=== PATIENT | male | born 1980 | race Two or more races ===

== ENCOUNTER 2022-01-29 13:22 | Outpatient (REF) | payer OTHER, SELFPAY ==
[2022-01-29 14:25] LABS: Influenza A PCR NEGATIVE (Negative); Influenza B PCR NEGATIVE (Negative); Resp Syncy Virus RNA Qual PCR NEGATIVE (Negative); SARS COV2 PCR INHOUSE POSITIVE (Negative)
== END 2022-01-29 13:23 | disposition home or self-care (01) ==
LOC: HO.LNP 13:22
PROVIDERS: Visit Provider Nurse Practitioner Family
DX: Z20.822 Contact with and (suspected) exposure to COVID-19 (principal); R09.89 Other specified symptoms and signs involving the circulatory and respiratory systems; R50.9 Fever, unspecified; R52 Pain, unspecified
CPT/HCPCS: 0241U

== ENCOUNTER 2022-04-09 16:49 | Outpatient (REF) | payer OTHER, SELFPAY ==
--- NOTE | ~2022-04-09 | XR_ITS ---
EXAMINATION: X-RAY CERVICAL SPINE X-RAY X-RAY THORACIC SPINE CLINICAL INFORMATION: Pain. COMPARISON: CT cervical spine 11/02/2014. Radiograph of the thoracic spine dated from 11/02/2014. TECHNIQUE: 4 views of the cervical spine. 2 views of the thoracic spine. FINDINGS: Cervical spine: Grade 1 anterolisthesis of C4 on C5 with reversal of the cervical lordosis. Otherwise, anatomic alignment. The atlantooccipital and atlantoaxial articulations are maintained. No acute compression deformities. Variously degrees of multilevel cervical spondylosis with disc space narrowing, marginal osteophytes and uncovertebral hypertrophy, more noticeable in the mid and lower lumbar spine. No prevertebral soft tissue thickening. The lung apices are clear. Thoracic spine: No acute compression deformity or subluxation. Disc spaces and posterior elements are intact. No significant soft tissue abnormality. XR/XR thoracic spine 2V IMPRESSION: 1. Mild reversal of the cervical lordosis with grade 1 anterolisthesis of C4 on C5, not convincingly changed when compared CT from 2014. 2. No acute compression deformity or subluxation. 3. Moderate multilevel cervical spondylosis, more noticeable in the mid and lower cervical spine. If clinically deemed appropriate, correlation with an MR of the cervical spine could be obtained for assessment of degree of nerve root impingement and central canal narrowing. 4. No evidence of acute compression deformity of malalignment in the thoracic spine.
--- NOTE | ~2022-04-09 | XR_ITS ---
EXAMINATION: X-RAY CERVICAL SPINE X-RAY X-RAY THORACIC SPINE CLINICAL INFORMATION: Pain. COMPARISON: CT cervical spine 11/02/2014. Radiograph of the thoracic spine dated from 11/02/2014. TECHNIQUE: 4 views of the cervical spine. 2 views of the thoracic spine. FINDINGS: Cervical spine: Grade 1 anterolisthesis of C4 on C5 with reversal of the cervical lordosis. Otherwise, anatomic alignment. The atlantooccipital and atlantoaxial articulations are maintained. No acute compression deformities. Variously degrees of multilevel cervical spondylosis with disc space narrowing, marginal osteophytes and uncovertebral hypertrophy, more noticeable in the mid and lower lumbar spine. No prevertebral soft tissue thickening. The lung apices are clear. Thoracic spine: No acute compression deformity or subluxation. Disc spaces and posterior elements are intact. No significant soft tissue abnormality. XR/XR cervical spine 2V IMPRESSION: 1. Mild reversal of the cervical lordosis with grade 1 anterolisthesis of C4 on C5, not convincingly changed when compared CT from 2014. 2. No acute compression deformity or subluxation. 3. Moderate multilevel cervical spondylosis, more noticeable in the mid and lower cervical spine. If clinically deemed appropriate, correlation with an MR of the cervical spine could be obtained for assessment of degree of nerve root impingement and central canal narrowing. 4. No evidence of acute compression deformity of malalignment in the thoracic spine.
== END 2022-04-09 16:50 | disposition home or self-care (01) ==
LOC: HO.XRAY 16:49
PROVIDERS: Visit Provider Family Medicine
DX: M54.9 Dorsalgia, unspecified (principal); Z91.81 History of falling
CPT/HCPCS: 72040; 72070

== ENCOUNTER 2023-02-28 09:02 | Outpatient (AMB) | payer OTHER, SELFPAY ==
[2023-02-28 09:08] VITALS: BP 128/74; PULSE 60; O2SAT 98; BMI 29.7
--- NOTE | 2023-02-28 09:08 | MHC.PC.OV ---
Vital Signs 02/28/23 09:08 Height 5 ft 5 in Weight 178 lb 4 oz BMI 29.7 BP 128/74 Blood Pressure Location Lt brachial Position Sitting Pulse 60 Pulse Source Pulse Oximeter Pulse Oximetry (%) 98 Intake Visit Reasons: PE Intake Note: Patient is here for physical and is concerned of right eye soreness. Patient is concerned about being pre diabetes. Allergies No Known Allergies [No Known Allergies*] Allergy (Verified 02/28/23 09:15) Tobacco use date assessed: 02/28/23 Dental Screening Dental Screen Date: 02/28/23 Did you have a dental visit in the last 12 months?: Yes Did you have a dental problem in the last 6 months where you did not have access to dental care?: No Was dental information given to patient?: Patient has dentist HPI PE HPI Details 42 y/o male presents for a CPE with f/u labs and health maintenance. No recent labs to review. Pt has complaints of R eye soreness/redness x1 month. He reports vision is fine. Pt reports GERD daily. He reports he has improved his diet but has not been exercising much. Pt reports ongoing back pain after a fall about a year ago. HPI Comments History of Present Illness Details Documentation assistance for Eldon Todd MD, was provided by Art Maldonado,? Pole Lift Operator on 02/28/2023 9:25 AM LAURE. I, Dr. Todd, have read, observed, and verified documentation.? PFSH Surgical History (Updated 02/28/23 @ 09:20 by Phyllis Dong CMA) Hx of appendectomy Family History (Updated 02/28/23 @ 09:22 by Phyllis Dong CMA) Mother Diabetes Father Hx of heart surgery Diabetes Other Substance abuse Social History (Updated 02/28/23 @ 09:25 by Phyllis Dong CMA) Household Members: Family Housing: House Are you a primary critical care clinical nurse specialist to a significant other at home: No Do you presently have visiting nurse or other home services: No 75 years or older and lives alone: No Alcohol intake: never Patient Tobacco Use Status: Never used Tobacco e-Cigarette/Vaping Use: Never Used Substance Use Type: Opiates service: No Current occupational status: employed 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 1. Little interest or pleasure in doing things: not at all 2. Feeling down, depressed, or hopeless: not at all 3. Trouble falling or staying asleep, or sleeping too much: not at all 4. Feeling tired or having little energy: not at all 5. Poor appetite or overeating: not at all 6. Feeling bad about yourself - or that you are a failure or have let yourself or your family down: not at all 7. Trouble concentrating on things, such as reading the newspaper or watching television: not at all 8. Moving or speaking so slowly that other people could have noticed. Or the opposite - being so fidgety or restless that you have been moving around a lot more than usual: not at all 9. Thoughts that you would be better off or of hurting yourself in some way: not at all Total score: 0 Source: Developed by Drs. Armen Rivera, Roxann Phoenix, Ernesto Moser and colleagues, with an educational deann from [employer]. Thrive Questionnaire I am a: Patient What is your living situation today?: I have a steady place to live Within the past 12 months, did the food you bought not last and you didn't have the money to get more?: Never true Within the past 12 months, did you worry whether your food would run out before you got money to buy more?: Never true Do you have trouble paying for medicines?: No Do you have trouble getting transportation to medical appointments?: No Do you have trouble paying your heating and electricity bill?: No Do you have trouble taking care of your child, family member or friend?: No Do you have trouble with day-to-day activities such as bathing, preparing meals, shopping, managing finances, etc.?: No Are you currently unemployed and looking for a job?: No Are you interested in more education?: No AUDIT C Alcohol Use Questionnaire (AUDIT-C) 1. How often do you have a drink containing alcohol?: Never 3. How often do you have six or more drinks on one occasion?: Never Total Score: 0 PRABHA-7 AMB Questionnaire PRABHA-7 Date PRABHA - 7 assessed: 02/28/23 Feeling nervous, anxious, or on edge: 2 = More than half the days Not being able to stop or control worryin = Several days Worrying too much about different things: 1 = Several days Trouble relaxin = Nearly every day Being so restless that it is hard to sit still: 2 = More than half the days Becoming easily annoyed or irritable: 0 = Not at all Feeling afraid as if something awful might happen: 0 = Not at all Total PRABHA-7 score (0-4 normal; 5-9 mild; 10-14 moderate; 15-21 severe): 9 Source: Developed by Drs. Armen Rivera, Roxann Phoenix, Ernesto Moser and colleagues, with an educational deann from [employer]. Review of Systems Const Denies chills, Denies fatigue, Denies fever(s), Denies headache(s) and Denies weakness Eyes Denies change in vision ENT Denies dizziness, Denies headache(s), Denies hearing loss, Denies nasal congestion, Denies sinus pain, Denies sinus pressure and Denies sore throat Card Denies chest pain, Denies lightheadedness, Denies dyspnea and Denies other (palpitations) Resp Denies cough, Denies dyspnea and Denies wheezing GI Denies abdominal pain, Denies melena, Denies hematochezia, Denies change in bowel habits, Denies dyspepsia and Denies nausea Denies hematuria and Denies dysuria Musc Denies abnormal gait, Denies myalgias, Denies arthralgias, Denies numbness and Denies tingling Skin/Breast Denies rash, Denies unusual bruising and Denies wounds Neuro Denies abnormal gait, Denies dizziness, Denies headache(s), Denies memory loss, Denies numbness, Denies Sensory deficit (Neuro), Denies tingling and Denies weakness Psych Denies anxiety, Denies depression and Denies memory loss Endo Denies cold intolerance, Denies fatigue, Denies heat intolerance, Denies polydipsia and Denies polyuria Cj/Lymph Denies easy bleeding and Denies easy bruising Aller/Immun Denies wheezing Physical exam (Primary Care) Vital Signs: Last Vital Signs Pulse 60 02/28/23 09:08 BP 128/74 08/31/23 09:08 Pulse Ox 98 02/28/23 09:08 BMI result Body Mass Index 29.7 Tobacco/Smoking Status: Tobacco use Status Tobacco use date assessed 02/28/23 02/28/23 09:25 Patient Tobacco Use Status Never used Tobacco 02/28/23 09:25 e-Cigarette/Vaping Use Never Used 02/28/23 09:25 PHQ-9: PHQ-9 Score PHQ-9: Total score 0 02/28/23 09:32 Const General: no acute distress, well developed, alert and awake Nutritional Appearance: well nourished Orientation/consciousness: patient oriented x3 HENMT Head: Yes normocephalic and Yes atraumatic Ears: hearing grossly normal bilaterally and TM's normal bilaterally General nose exam: Normal external nose present and Normal nares present Mouth: Normal oral and palatal mucosa present and moist mucous membranes Teeth and gingiva: dentition normal Throat: Yes posterior oropharynx normal Eyes Pupils: Equal, round and reactive pupils present and Pupil accommodation reflex normal EOM: EOMs intact bilaterally Neck Neck: Yes normal visual inspection, Yes no lymphadenopathy and Yes trachea midline Thyroid: Thyroid normal Carotids: no bruits Lymphatic: no lymphadenopathy noted Chest Chest palpation & inspection: normal inspection of the chest Resp Effort & Inspection: normal respiratory effort Auscultation: clear to auscultation bilaterally Cardio Rate: regular rate Rhythm: regular rhythm Heart sounds: S1 normal heart sound present, S2 normal heart sound present, no gallops, no murmurs and no rubs Bruits: no abdominal aortic bruits and no carotid bruits GI Palpation (GI): No Abdominal aortic bruit present, Soft to palpation, nontender, No hepatosplenomegaly present and No Rebound tenderness present Auscultation: normal bowel sounds General: Yes no CVA tenderness Back/Spine/Pelvis Back: no CVA tenderness Cervical Spine: cervical ROM normal and No Cervical spine tenderness Thoracic/Lumbar Spine: thoraco-lumbar ROM normal, No pain with thoraco-lumbar ROM, No thoracic spinal tenderness and No lumbar spinal tenderness Skin Lesions: no lesions Rashes: no rashes Trauma: no lacerations or abrasions Wounds: no wounds Nails: normal Neuro General: patient oriented x3 Cranial nerves: Yes Equal, round and reactive pupils present Cognition (Neuro): normal cognition Gait exam (Neuro): Normal gait present Motor exam (neuro): 5/5 motor strength present throughout Sensory Exam: No Sensory deficit (Neuro) Deep tendon reflexes (DTR's): Right patellar reflex intensity grade: 2+ and Left patellar reflex intensity grade: 2+ Extrem General: Yes normal to inspection and No edema Psych Appearance: grossly normal Affect: normal affect Attitude: cooperative Thought process: Normal thought process present Assessment and Plan Assessment & Plan (1) Adult general medical exam: Code(s): Z00.00 - Encounter for general adult medical examination without abnormal findings (2) Infection of right eye: Code(s): H44.001 - Unspecified purulent endophthalmitis, right eye Plan: Conjunctivitis with periorbital cellulitis Start cephalexin Warm compresses He can continue the eyedrops he was given If any globe pain or vision changes, he will get an urgent visit with an eye doctor or go to the ED (3) GERD (gastroesophageal reflux disease): Code(s): K21.9 - Gastro-esophageal reflux disease without esophagitis Plan: Moderately severe daily GERD symptoms and patient describes a history of esophageal strictures No current chain maker machine-referred to GI Start omeprazole Avoid triggers (4) Back pain: Code(s): M54.9 - Dorsalgia, unspecified Plan: Chronic Back pain and cervicalgia Likely recurrent muscular strains Referred for physical therapy (5) Cervicalgia: Code(s): M54.2 - Cervicalgia Orders: Orders Comprehensive Nicasio. Panel Fast Today Z00.00 - Encounter for general adult medical examination without abnormal findings Lipid Panel Today Z00.00 - Encounter for general adult medical examination without abnormal findings Prostate Specific Antigen Scr Today Z12.5 - Encounter for screening for malignant neoplasm of prostate TSH reflex Free T4 Today Z00.00 - Encounter for general adult medical examination without abnormal findings Microalbumin, Random (w Creat) Today I10 - Essential (primary) hypertension UA and rflx microscopic Today Z00.00 - Encounter for general adult medical examination without abnormal findings PT Evaluation and Treatment Today M54.2 - Cervicalgia, M54.9 - Dorsalgia, unspecified Referrals Gastroenterology Referral K21.9 - Gastro-esophageal reflux disease without esophagitis Medications: New cephalexin 500 mg PO Q12H 20 caps 0RF 10 days omeprazole 40 mg PO DAILY 30 caps 3RF 30 days Coding Level of Care Code Est Pt Level 3 (25766) Est Pt Prev Care 40-64y(28345) Diagnoses Adult general medical exam Z00.00 Infection of right eye H44.001 GERD (gastroesophageal reflux disease) K21.9 Back pain M54.9 Cervicalgia M54.2
== END 2023-02-28 10:07 | disposition home or self-care (01) ==
PROVIDERS: Visit Provider Family Medicine
DX: Z00.00 Encounter for general adult medical examination without abnormal findings (principal); H44.001 Unspecified purulent endophthalmitis, right eye; K21.9 Gastro-esophageal reflux disease without esophagitis; M54.9 Dorsalgia, unspecified; M54.2 Cervicalgia
CPT/HCPCS: 99396

== ENCOUNTER 2023-05-06 10:43 | Outpatient (AMB) | payer OTHER, SELFPAY ==
[2023-05-06 13:12] VITALS: BP 128/76; PULSE 72; TEMP 36.6; O2SAT 99; BMI 30.8
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
== END 2023-05-06 14:05 | disposition home or self-care (01) ==
PROVIDERS: Visit Provider Internal Medicine
DX: M54.2 Cervicalgia (principal)
CPT/HCPCS: 99213

== ENCOUNTER 2025-01-08 08:09 | Outpatient (REF) | payer OTHER, SELFPAY | END 2025-01-08 08:10 | disposition home or self-care (01) | LOC: HO.LNP 08:09 | PROVIDERS: Visit Provider Physician Assistant | DX: N39.0 Urinary tract infection, site not specified (principal); Z13.9 Encounter for screening, unspecified | CPT/HCPCS: 81003; 87086 ==

== ENCOUNTER 2025-01-08 08:09 | Outpatient (AMB) | payer OTHER, SELFPAY ==
--- OUTSIDE RECORDS SUMMARY | 2025-01-08 08:12 | XMS_ITS | Clinical Summary ---
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 Name Role Phone Unavailable Primary Care Provider Unavailabl e Social History Tobacco Use Types Packs/Day Years Used Date Smoking Tobacco: Never Assessed Sex and Gender Information Value Date Recorded Sex Assigned at Not on file Legal Sex Male 6:47 PM EDT Gender Identity Not on file Sexual Orientation Not on file Plan of Treatment Health Maintenance Due Date Last Done Comments Hepatitis C Virus Screening 1982 HIV Screening 09/24/1995 DTaP/Tdap/Td Vaccines (1 - Tdap) 2001 Hepatitis B Vaccines (1 of 3 - 19+ 3-dose series) 2001 COVID-19 Vaccine (2023-2 5 season) 2024 HPV Vaccines Aged Out No longer eligi ble based on patient's age to complete this topic Pneumococcal Vaccine: Pediat lauryn (0-5 Years) and At-Risk Patients (6 to 49 Years) Aged Out No longer eligible b ased on patient's age to complete this topic
[2025-01-08 08:14] VITALS: BP 106/68; PULSE 60; TEMP 36.5; O2SAT 97; BMI 31.6
--- NOTE | 2025-01-08 08:14 | AM.OFFWIN_ITS ---
Intake Vital Signs 01/08/25 08:14 Height 5 ft 5 in Weight 190 lb BMI 31.6 BP 106/68 Blood Pressure Location Lt brachial Position Sitting Pulse 60 Pulse Source Pulse Oximeter Temp 97.7 F Pulse Oximetry (%) 97 Oxygen Delivery Method Room Air Intake Visit Reasons: EP ?UTI Intake Note: presents with pain to right lower abodomen around to right flank, urge to void, h/o kidney stones, OTC AZO was helpful Patient Tobacco Use Status: Never used Tobacco Allergies No Known Allergies (No Known Allergies*) Allergy (Verified 01/08/25 08:19) Do you need a note to return to daycare/school/sports/work: Yes HPI HPI Comments History of Present Illness Details History - The patient is a 44-year-old male pres enting with a urinary tract infection symptoms for one day. - The patient experienced pain and disco mfort starting the previous day, which intensified at 2 AM, prompting him to take a bath for relief. - The pain was localized to the right lo wer abdomen and lower right back, with no associated fever, nausea or vomiting. - The patient took Azo, which provided s ignificant relief within 20 minutes. - There was no blood in the urine, but t he urine appeared discolored due to Azo. - The patient did not experience increas ed frequency of urination or burning sensation during urination. Physical Exam General: Cooperative, healthy appearing, comfortable, no acute distress and well developed Orientation: Patient oriented x3 Limitations: No limitations Head: Normal to inspection Ears: Hearing grossly normal bilaterally Face and sinus: Normal facial exam Neck: Normal visual inspection and Yes full ROM Respiratory: Normal respiratory effort and able to speak in complete sentences. Skin: No rashes or lesions noted Neuro: Patient oriented x3 [facility] Surgical History (Updated 02/28/23 @ 09:20 by Phyllis Dong CMA) Hx of appendectomy Family History (Updated 02/28/23 @ 09:22 by Phyllis Dong CMA) Mother Diabetes Father Hx of heart surgery Diabetes Other Substance abuse Social History (Updated 02/28/23 @ 09:25 by Phyllis Dong CMA) Household Members: Family Housing: House Are you a primary md do resident urgent care to a significant other at home: No Do you presently have visiting nurse or other home services: No 75 years or older and lives alone: No Alcohol intake: never Patient Tobacco Use Status: Never used Tobacco e-Cigarette/Vaping Use: Never Used Substance Use Type: Opiates service: No Current occupational status: employed 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 Cognitive needs: No Hearing needs: No Vision needs: No Review of Systems Const All systems reviewed & are unremarkable except as noted in HPI and below Physical Exam Vital Signs: Last Vital Signs Temp 97.7 F 01/08/25 08:14 Pulse 60 01/08/25 08:14 BP 106/68 01/08/25 08:14 Pulse Ox 97 01/08/25 08:14 Oxygen Delivery Method Room Air 01/08/25 08:14 BMI result Body Mass Index 31.6 Assessment & Plan Assessment & Plan (1) UTI (urinary tract infection): Code(s): N39.0 - Urinary tract infection, site not specified Qualifiers: Urinary tract infection type: acute cystitis Hematuria presence: with hematuria Qualified Code(s): N30.01 - Acute cystitis with hematuria Plan: Plan Patient was informed and verbally consented to the use of an ambient scribe for clinic note documentation during this visit. 1. Urinary Tract Infection (Uti) - A urine culture was sent for analysis to confirm the infection. - The patient was prescribed cefuroxime, to be taken twice daily for five days. - The patient was advised to seek emergency care if symptoms such as fever, inability to urinate, or blood in urine develop. Orders: Orders Urine Culture Today N39.0 - Urinary tract infection, site not specified Medications: New cefuroxime axetil 500 mg PO Q12H 10 tabs 0RF Coding Level of Care Code New Pt Level 3 (80612) Diagnoses Acute cystitis with hematuria N30.01 Urinary tract infection type: acute cystitis Hematuria presence: with hematuria
== END 2025-01-08 08:55 | disposition home or self-care (01) ==
PROVIDERS: Visit Provider Physician Assistant
DX: N30.01 Acute cystitis with hematuria (principal); Z13.9 Encounter for screening, unspecified

== ENCOUNTER 2025-01-19 09:30 | Outpatient (AMB) | payer OTHER, SELFPAY ==
--- NOTE | 2025-01-19 09:35 | A.OFFPC_ITS ---
Vital Signs 01/19/25 09:37 Height 5 ft 5 in Weight 189 lb 6 oz BMI 31.5 BP 132/84 Blood Pressure Location Lt brachial Position Sitting Respiration 12 Pulse 64 Pulse Source Pulse Oximeter Temp 98.5 F Temp Source Oral Pulse Oximetry (%) 96 Oxygen Delivery Method Room Air Intake Visit Reasons: CPE Intake Note: Physical. Had pain last week from possible kidney stone, sxs resolved on Saturday. Obstetric Assistant Required: No Allergies No Known Allergies (No Known Allergies*) Allergy (Verified 01/19/25 09:48) Medication List - Last Reconciled 01/19/25 by Phani Asif, FAMILY SERVICE CASEWORKER lebrikizumab-lbkz (Ebglyss Pen) 250 mg subcut Q2W Tobacco use date assessed: 01/19/25 Dental Screening Dental Screen Date: 01/19/25 Did you have a dental visit in the last 12 months?: No Did you have a dental problem in the last 6 months where you did not have access to dental care?: No Was dental information given to patient?: Patient declined HPI HPI Comments History of Present Illness Details 44-year-old male presents for an extende d physical exam. He is a patient of Dr. Todd. Acute issue(s) - None Past Medical History - Back pain, cervicalgia, GERD, renal ca lculi, psoriasis, eczema Social History - Nonsmoker. Does not vape. Does not dri nk alcohol. Denies recreational drug use - Has been making unhealthy dietary blandon sera. Active but does not exercise. Generally sleep well Health maintenance - Last eye exam was 1 year ago. Referred to ophthalmology for routine eye exam - Last dental visit was a years ago; enc ouraged to schedule an appointment with his dentist for routine dental care. - Last tetanus vaccine unknown; declines vaccinated - Has not been vaccinated for the flu ; declines vaccination Specialists Followed by [facility] for eczema and psoriasis PFSH Surgical History (Updated 02/28/23 @ 09:20 by Phyllis Dong CMA) Hx of appendectomy Family History (Updated 02/28/23 @ 09:22 by Phyllis Dong CMA) Mother Diabetes Father Hx of heart surgery Diabetes Other Substance abuse Social History (Updated 02/28/23 @ 09:25 by Phyllis Dong CMA) Household Members: Family Housing: House Are you a primary rn long term care to a significant other at home: No Do you presently have visiting nurse or other home services: No 75 years or older and lives alone: No Alcohol intake: never Patient Tobacco Use Status: Never used Tobacco e-Cigarette/Vaping Use: Never Used Substance Use Type: Opiates service: No Current occupational status: employed 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 1. Little interest or pleasure in doing things: not at all 2. Feeling down, depressed, or hopeless: not at all 3. Trouble falling or staying asleep, or sleeping too much: not at all 4. Feeling tired or having little energy: not at all 5. Poor appetite or overeating: not at all 6. Feeling bad about yourself - or that you are a failure or have let yourself or your family down: not at all 7. Trouble concentrating on things, such as reading the newspaper or watching television: not at all 8. Moving or speaking so slowly that other people could have noticed. Or the opposite - being so fidgety or restless that you have been moving around a lot more than usual: not at all 9. Thoughts that you would be better off or of hurting yourself in some way: not at all Total score: 0 Depression Screening Interpretation: Negative Depression Screening Done: Yes 57825 - PHQ-9 Billing: Yes Source: Developed by Drs. Armen Rivera, Roxann Phoenix, Ernesto Moser and colleagues, with an educational deann from [employer]. Thrive Questionnaire Date Thrive assessed: 01/19/25 I am a: Patient What is your living situation today?: I have a steady place to live Within the past 12 months, did the food you bought not last and you didn't have the money to get more?: I choose not to answer this question Within the past 12 months, did you worry whether your food would run out before you got money to buy more?: I choose not to answer this question Do you have trouble paying for medicines?: No Do you have trouble getting transportation to medical appointments?: No Do you have trouble paying your heating and electricity bill?: No Do you have trouble taking care of your child, family member or friend?: No Do you have trouble with day-to-day activities such as bathing, preparing meals, shopping, managing finances, etc.?: No Are you currently unemployed and looking for a job?: No Are you interested in more education?: No Please select the resources that you would like help with: None Currently or been in a relationship where the following occur: No concerns reported THRIVE Score: 0 AUDIT C Alcohol Use Questionnaire (AUDIT-C) 1. How often do you have a drink containing alcohol?: Never 3. How often do you have six or more drinks on one occasion?: Never Total Score: 0 Score Reviewed/Action Taken: Yes PRABHA-7 AMB Questionnaire PRABHA-7 Date PRABHA - 7 assessed: 01/19/25 Feeling nervous, anxious, or on edge: 0 = Not at all Not being able to stop or control worryin = Not at all Worrying too much about different things: 1 = Several days Trouble relaxin = More than half the days Being so restless that it is hard to sit still: 0 = Not at all Becoming easily annoyed or irritable: 1 = Several days Feeling afraid as if something awful might happen: 0 = Not at all Total PRBAHA-7 score (0-4 normal; 5-9 mild; 10-14 moderate; 15-21 severe): 4 Source: Developed by Drs. Armen Rivera, Roxann Phoenix, Ernesto Moser and colleagues, with an educational deann from [employer]. PRABHA-7 Assessment Billing PRABHA-7 Assessment Tool: PRABHA-7 Assessment 02897 Review of Systems Const Details: Denies chills, Denies fatigue, Denies fever(s), Denies headache(s) and Denies weakness HEENT Denies change in vision, Denies dizziness, Denies headache(s), Denies hearing loss, Denies nasal congestion, Denies sinus pain, Denies sinus pressure and Denies sore throat Card Denies chest pain, Denies lightheadedness, Denies dyspnea and Denies other (palpitations) Resp Denies cough, Denies dyspnea and Denies wheezing GI Denies abdominal pain, Denies melena, Denies hematochezia, Denies change in bowel habits, Denies dyspepsia and Denies nausea Denies hematuria and Denies dysuria Musc Denies abnormal gait, Denies myalgias, Denies arthralgias, Denies numbness and Denies tingling Skin/Breast Denies rash, Denies unusual bruising and Denies wounds Neuro Denies abnormal gait, Denies dizziness, Denies headache(s), Denies memory loss, Denies numbness, Denies Sensory deficit (Neuro), Denies tingling and Denies weakness Psych Denies anxiety, Denies depression and Denies memory loss Endo Denies cold intolerance, Denies fatigue, Denies heat intolerance, Denies polydipsia and Denies polyuria Cj/Lymph Denies easy bleeding and Denies easy bruising Aller/Immun Denies wheezing Physical exam (Primary Care) Tobacco/Smoking Status: Tobacco use Status Tobacco use date assessed 02/28/23 05/06/23 10:38 Patient Tobacco Use Status Never used Tobacco 01/08/25 08:21 e-Cigarette/Vaping Use Never Used 05/06/23 10:38 Depression Screening Interpretation: Negative Currently or been in a relationship where the following occur: No concerns reported Const Other: General: no acute distress, well developed, alert and awake Nutritional Appearance: well nourished Orientation/consciousness: patient oriented x3 HENMT Head: Yes normocephalic and Yes atraumatic Ears: hearing grossly normal bilaterally and TM's normal bilaterally General nose exam: Normal external nose present and Normal nares present Mouth: Normal oral and palatal mucosa present and moist mucous membranes Teeth and gingiva: dentition normal Throat: Yes oropharynx normal Eyes Pupils: Equal, round and reactive pupils present and Pupil accommodation reflex normal EOM: EOMs intact bilaterally Neck Neck: Yes normal visual inspection, Yes no lymphadenopathy and Yes trachea midline Thyroid: Thyroid normal Carotids: no bruits Lymphatic: no lymphadenopathy noted Chest Chest palpation & inspection: normal inspection of the chest Resp Effort & Inspection: normal respiratory effort Auscultation: clear to auscultation bilaterally Cardio Rate: regular rate Rhythm: regular rhythm Heart sounds: S1 normal heart sound present, S2 normal heart sound present, no gallops, no murmurs and no rubs Bruits: no abdominal aortic bruits and no carotid bruits GI Palpation (GI): No Abdominal aortic bruit present, Soft to palpation, nontender, No hepatosplenomegaly present and No Rebound tenderness present Auscultation: normal bowel sounds General: Yes no CVA tenderness Back/Spine/Pelvis Back: no CVA tenderness Cervical Spine: cervical ROM normal and No Cervical spine tenderness Thoracic/Lumbar Spine: thoraco-lumbar ROM normal, No pain with thoraco-lumbar ROM, No thoracic spinal tenderness and No lumbar spinal tenderness Skin General: warm and dry. Normal skin color. Normal skin turgor Lesions: no lesions Rashes: no rashes Trauma: no lacerations or abrasions Wounds: no wounds Nails: normal Neuro General: patient oriented x3, gait normal and CN's II-XI intact bilaterally Cranial nerves: Yes Equal, round and reactive pupils present Cognition (Neuro): normal cognition Gait exam (Neuro): Normal gait present Motor exam (neuro): 5/5 motor strength present throughout Sensory Exam: No Sensory deficit (Neuro) Deep tendon reflexes (DTR's): Right patellar reflex intensity grade: 2+ and Left patellar reflex intensity grade: 2+ Extrem General: Yes normal to inspection, No edema and No calf tenderness Psych Appearance: grossly normal Affect: normal affect Attitude: cooperative Thought process: Normal thought process present Coding Level of Care Code Est Pt Level 3 (40625) Est Pt Prev Care 40-64y(15379) Diagnoses Adult general medical exam Z00.00 Eye exam, routine Z01.00 Obesity (BMI 30-39.9) E66.9 Eczema L30.9 Psoriasis L40.9 Laboratory tests ordered as part of a complete physical exam (CPE) Z00.00 Additional Codes PRABHA-7 Assessment Billing - PRABHA-7 Assessment Tool: PRABHA-7 Assessment 31810 ([id number]) PHQ-9 - 34536 - PHQ-9 Billing: Yes ([id number]) Assessment & Plan Assessment & Plan (1) Adult general medical exam: Code(s): Z00.00 - Encounter for general adult medical examination without abnormal findings Category: Medical Plan: Normal physical exam of a 44-year-old male. No significant functional limitation noted. Continue current treatment regimen. Healthy diet and routine exercise encouraged. Perform lab work and follow-up for telehealth visit with PCP in 2-4 weeks for labs review. Return sooner with symptoms or concerns. Verbalized understanding and agreed with the plan. (2) Eye exam, routine: Code(s): Z01.00 - Encounter for examination of eyes and vision without abnormal findings Category: Medical Plan: Last eye exam was 1 year ago. Referred to ophthalmology for routine eye exam. (3) Obesity (BMI 30-39.9): Code(s): E66.9 - Obesity, unspecified Category: Medical Plan: He currently weighs 189 lb, BMI is 31.5. He has been making healthy dietary choices. He is active but does not exercise. Healthy diet and routine exercise encouraged. Follow-up as needed. Verbalized understanding and agreed with the plan. (4) Eczema: Code(s): L30.9 - Dermatitis, unspecified Category: Medical Plan: No acute signs or symptoms. Continued with [place] Ebglyss as prescribed. Follow-up with allergies/tooth polisher as planned. Verbalized understanding and agreed with the treatment plan. (5) Psoriasis: Code(s): L40.9 - Psoriasis, unspecified Category: Medical Plan: Plan as above. (6) Laboratory tests ordered as part of a complete physical exam (CPE): Code(s): Z00.00 - Encounter for general adult medical examination without abnormal fin dings Category: Medical Plan: Fasting labs ordered as part of a complete physical exam. Advised to fast for at least 10 hours before getting labs drawn. May drink water Verbalized understanding and agreed with treatment plan. Orders: Orders Complete Blood Count Auto Diff Today Z00.00 - Encounter for general adult medical examination without abnormal findings Comprehensive [place]. Panel Fast Today Z00.00 - Encounter for general adult medical examination without abnormal findings TSH reflex Free T4 Today Z00.00 - Encounter for general adult medical examination without abnormal findings Lipid Panel Today Z00.00 - Encounter for general adult medical examination without abnormal findings Microalbumin, Random (w Creat) Today Z00.00 - Encounter for general adult medical examination without abnormal findings PSA, Ultra Sensitive Today Z00.00 - Encounter for general adult medical examination without abnormal findings UA CC w/rflx Micro + Cult Today Z00.00 - Encounter for general adult medical examination without abnormal findings Vitamin D 25-OH Total Today Z00.00 - Encounter for general adult medical examination without abnormal findings Referrals Ophthalmology Referral Z01.00 - Encounter for examination of eyes and vision without abnormal findings
[2025-01-19 09:37] VITALS: BP 132/84; PULSE 64; RESP 12; TEMP 36.9; O2SAT 96; BMI 31.5
--- OUTSIDE RECORDS SUMMARY | 2025-01-19 10:08 | XMS_ITS | Clinical Summary ---
Author Organization [facility] Address [address] [place] [address] Care Team Providers Care Railway Shunter Name Role Phone Unavailable Primary Care Provider [...]
== END 2025-01-19 10:01 | disposition home or self-care (01) ==
LOC: HO.HMCFM 09:31
PROVIDERS: PCP Nurse Practitioner Family; Visit Provider Nurse Practitioner Family
DX: Z00.00 Encounter for general adult medical examination without abnormal findings (principal); L30.9 Dermatitis, unspecified; E66.9 Obesity, unspecified; Z68.31 Body mass index [BMI] 31.0-31.9, adult; L40.9 Psoriasis, unspecified

== ENCOUNTER → 2025-01-19 09:30 | Outpatient (BNVA) | payer OTHER, SELFPAY | PROVIDERS: PCP Nurse Practitioner Family; Visit Provider Nurse Practitioner Family | DX: Z00.00 Encounter for general adult medical examination without abnormal findings (principal); E66.9 Obesity, unspecified; L30.9 Dermatitis, unspecified; L40.9 Psoriasis, unspecified; Z68.31 Body mass index [BMI] 31.0-31.9, adult | CPT/HCPCS: 96127 ==

== ENCOUNTER 2025-02-22 08:26 | Outpatient (REF) | payer OTHER, SELFPAY ==
--- OUTSIDE RECORDS SUMMARY | 2025-02-22 08:51 | XMS_ITS | Clinical Summary ---
Author Organization [facility] Address [address] [place] [address] Care Team Providers Care Tire Cord Weaver Name Role Phone Unavailable Primary Care Provider [...] of 3 - 19+ 3-dose series) 2001 HPV Vaccines (1 - 3-dose SCD M series) 2009 COVID-19 Vaccine (2023-2 5 season) 2024 Pneumococcal Vaccine: Pediat lauryn (0-5 Years) and At-Risk Patients (6 to 49 Years) Aged Out No longer eligible b ased on patient's age to complete this topic
--- OUTSIDE RECORDS SUMMARY | 2025-02-22 08:51 | XMS_ITS ---
Author Name [facility] Organization Unknown Care Team Organization Name Specialty Phone Email Start Date End Da te [facility] Termed, PROVIDER Primary Care 05/08/202201/29
[2025-02-22 11:07] LABS: MANUAL DIFF FLAG NO
[2025-02-22 11:30] LABS: Hematocrit 46.1 % (42.0-52.0); Hemoglobin 14.9 g/dl (14.0-18.0); Imm Gran Abs Auto 0.01 X10*3/uL (0.00-0.03); Imm Gran Pct Auto 0.2 % (0.0-0.4); Lymphocytes Absolute Auto 2.0 X10*3/uL (1.2-4.9); Mean Corpuscular HGB Conc 32.3 g/dl (31.0-36.0); Mean Corpuscular Hemoglobin 27.6 pg (27.0-33.0); Mean Corpuscular Volume 85.5 fL (80.0-98.0); NRBC Abs Auto 0.000 X10*3/uL (0.0-0.012); NRBC Pct Auto 0.0 /100WBC (0.0-0.2); Platelet Count 246 X10*3/uL (160-400); Red Blood Count 5.39 X10*6/uL (4.60-5.80); White Blood Count 6.0 X10*3/uL (4.8-10.8)
[2025-02-22 11:54] LABS: Alanine Aminotransferase 30 U/L (0-40); Albumin Level 4.3 g/dL (3.5-5.0); Alkaline Phosphatase 61 U/L (39-117); Anion Gap 12 (12-20); Aspartate Amino Transferase 31 U/L (5-37); Blood Urea Nitrogen 13 mg/dL (9-16); Calcium 9.2 mg/dL (8.4-10.2); Carbon Dioxide 29 mmol/L (22-29); Chloride 106 mmol/L (96-108); Cholesterol 222 mg/dL (<200); Estimated Glomerular Filt Rate > 60; HDL Cholesterol 43 mg/dL (>40); Potassium 4.0 mmol/L (3.3-5.1); Sodium 143 mmol/L (135-145); Total Protein 6.9 g/dL (6.5-8.0); Triglycerides 122 mg/dL (<150)
[2025-03-01 15:48] LABS: PSA, Ultra Sensitive 0.68 ng/mL
== END 2025-02-22 08:27 | disposition home or self-care (01) ==
LOC: HO.WFDLDS 08:26
PROVIDERS: Visit Provider Nurse Practitioner Family
DX: Z00.00 Encounter for general adult medical examination without abnormal findings (principal); Z12.5 Encounter for screening for malignant neoplasm of prostate; Z13.6 Encounter for screening for cardiovascular disorders
CPT/HCPCS: 36415; 80053; 80061; 82306; 84153; 84443; 85025

== ENCOUNTER 2025-02-24 14:42 | Outpatient (AMB) | payer OTHER, SELFPAY ==
--- NOTE | 2025-02-24 12:42 | MHC.PC.OV ---
Intake Visit Reasons: Dr. Brand, Tele 2-4 wks labs review Intake Note: patient here for 2-3 wks Telehealth for lab review Communications Representative Required: No Allergies No Known Allergies (No Known Allergies*) Allergy (Verified 02/24/25 12:42) Medication List - Last Reconciled 02/24/25 by Eldon Todd MD lebrikizumab-lbkz (Ebglyss Pen) 250 mg subcut Q2W Tobacco use date assessed: 02/24/25 Dental Screening Dental Screen Date: 02/24/25 Did you have a dental visit in the last 12 months?: Yes Did you have a dental problem in the last 6 months where you did not have access to dental care?: No Was dental information given to patient?: Patient has dentist HPI Dr. Brand, Tele 2-4 wks labs review HPI Details 44 y/o male presents to f/u labs via telemedicine. Reviewed labs with pt. Triglycerides 122. TC 222. LDL 155. HDL 43. Eosinophil count elevated. He notes hx of allergies. He has been taking zyrtec/juan carlos. PFSH Surgical History (Updated 02/28/23 @ 09:20 by Phyllis Dong CMA) Hx of appendectomy Family History (Updated 02/28/23 @ 09:22 by Phyllis Dong CMA) Mother Diabetes Father Hx of heart surgery Diabetes Other Substance abuse Social History (Updated 01/19/25 @ 09:42 by Cynthia Bryant [facility]) Household Members: Family Housing: House Are you a primary school childcare attendant to a significant other at home: No Do you presently have visiting nurse or other home services: No 75 years or older and lives alone: No Alcohol intake: never Patient Tobacco Use Status: Never used Tobacco e-Cigarette/Vaping Use: Never Used Second Hand Smoke Exposure: No Substance Use Type: Opiates service: No Current occupational status: employed 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 Armen Rivera, Roxann Phoenix, Ernesto Moser and colleagues, with an educational deann from [employer]. Review of Systems Const Denies chills, Denies fatigue, Denies fever(s), Denies headache(s) and Denies weakness ENT Denies dizziness and Denies headache(s) Card Denies dyspnea Resp Denies cough, Denies dyspnea, Denies wheezing and Denies other (shortness of breath) Musc Denies numbness and Denies tingling Neuro Denies dizziness, Denies headache(s), Denies numbness, Denies tingling and Denies weakness Psych Denies anxiety and Denies depression Endo Denies fatigue Aller/Immun Denies wheezing Physical exam (Primary Care) Tobacco/Smoking Status: Tobacco use Status Tobacco use date assessed 02/24/25 02/24/25 12:42 Patient Tobacco Use Status Never used Tobacco 02/24/25 12:42 e-Cigarette/Vaping Use Never Used 02/24/25 12:42 Thrive Assessment: Date of Thrive Assessment Date Thrive assessed 01/19/25 02/24/25 12:42 Telehealth Telehealth Telehealth Platform: Telephone Location of provider rendering services: practice address Location of patient: address on file Patient Identification confirmed using: Name, : Yes Telehealth method: voice only Patient verbally consented to treatment: Yes Patient verbally consented to billing insurance company: Yes Patient informed of any privacy concerns related to visit: Yes Minutes spent on Phone/Video with Pt.: 5 Coding Level of Care Code Tele Est Pt Level 2 (07344) Diagnoses Elevated LDL cholesterol level E78.00 Allergies T78.40XA Assessment & Plan Assessment & Plan (1) Elevated LDL cholesterol level: Code(s): E78.00 - Pure hypercholesterolemia, unspecified Category: Medical Plan: TC and LDL cholesterol are too high Encouraged a diet lower in saturated fats and cholesterol Will recheck lipids in a few months We did discuss that if he is still having difficulty controlling his cholesterol levels we should consider medication. Patient understands. (2) Allergies: Code(s): T78.40XA - Allergy, unspecified, initial encounter Category: Medical Plan: Patient notes significant allergies He can use a daytime antihistamine such as Zyrtec or Claritin Orders: Orders LDL Cholesterol Direct Today E78.00 - Pure hypercholesterolemia, unspecified, E78.5 - Hyperlipidemia, unspecified Comprehensive [place]. Panel Fast Today E78.00 - Pure hypercholesterolemia, unspecified, Z00.00 - Encounter for general adult medical examination without abnormal findings
--- OUTSIDE RECORDS SUMMARY | 2025-02-24 16:01 | XMS_ITS | Encounter Summary ---
Author Organization [facility] Address [address] [place] [address] Care Team Providers Care Burlesque Dancer Name Role Phone Analy Villatoro MD Primary Care Provider Ninfa De León, Pcp Primary Care Provider Brittany Phan MD Primary Care Provider Un available Analy Villatoro MD Primary Care Provider Ninfa mitchell Encounter Details Date Type Department Care Team Description 02/10/2010 Night Triage Doc Medical Records [address] [place] [id number] Abstract, Provider Social History Tobacco Use Types Packs/Day Years Used Date Smoking Tobacco: Never Alcohol Use Standard Drinks/Week Comments No 0 (1 standard drink = 0.6 oz pur e alcohol) Sex Assigned at Date Recorded Not on file documented as of this encounter Plan of Treatment Not on file documented as of this encounter Visit Diagnoses Not on filedocumented in this encounter Care Teams Burlesque Dancer Relationship Specialty Start Date End Date Analy Villatoro MD PCP - General 09/13/09 08/28/14 Sarthak, Pcp PCP - General Internal Medicine 08/29/14 10/26/14 Brittany Aguillon MD PCP - General Internal Medicine 10/27/1405/12 Analy Villatoro MD PCP - General Internal Medicine 05/13/15 documented as of this encounter
--- OUTSIDE RECORDS SUMMARY | 2025-02-24 16:01 | XMS_ITS | Encounter Summary ---
Author Organization [facility] Address [address] [place] [address] Care Team Providers Care Software Integrator Name Role Phone Analy Villatoro MD Primary Care Provider Ninfa De León, Pcp Primary Care Provider Brittany Phan MD Primary Care Provider Un available Analy Villatoro MD Primary Care Provider Ninfa mitchell Encounter Details Date Type Department Care Team Description 05/27/2014 [facility] Medical Records [address] [place] [address] Adi Beckman MD Social History Tobacco Use Types Packs/Day Years Used Date Smoking Tobacco: Never Smokeless Tobacco: Never Alcohol Use Standard Drinks/Week Comments No 0 (1 standard drink = 0.6 oz pur e alcohol) Sex Assigned at Date Recorded Not on file documented as of this encounter Plan of Treatment Not on file documented as of this encounter Visit Diagnoses Not on filedocumented in this encounter Care Teams Software Integrator Relationship Specialty Start Date End Date Analy Villatoro MD PCP - General 09/13/09 08/28/14 Sarthak, Pcp PCP - General Internal Medicine 08/29/14 10/26/14 Brittany Aguillon MD PCP - General Internal Medicine 10/27/1405/12 Analy Villatoro MD PCP - General Internal Medicine 05/13/15 documented as of this encounter
--- OUTSIDE RECORDS SUMMARY | 2025-02-24 16:01 | XMS_ITS | Encounter Summary ---
Author Organization [facility] Address [address] [place] [address] Care Team Providers Care Cad Cam Programmer Name Role Phone Brittany Aguillon MD Primary Care Provider Un available Analy Villatoro MD Primary Care Provider Unava ilable Encounter Details Date Type Department Care Team Description 04/23/2015 [facility] Medical Records [address] [place] [id number] Abstract, Provider Social History Tobacco Use Types [...] on filedocumented in this encounter Care Teams Cad Cam Programmer Relationship Specialty Start Date End Date Brittany Aguillon MD PCP - General Internal Medicine 10/27/1405/12 Analy Villatoro MD PCP - General Internal Medicine 05/13/15 documented as of this encounter
--- OUTSIDE RECORDS SUMMARY | 2025-02-24 16:01 | XMS_ITS | Encounter Summary ---
Author Organization [employer] [facility] Address [address] [place] [address] Care Team Providers Care Instructional Developer Name Role Phone Analy Villatoro MD Primary Care Provider Unaerin ilable Encounter Details Date Type Department Care Team Description 10/08/2015 [facility] Medical Records [address] [place] [id number] Mann Ochoa MD Social History Tobacco Use Types Packs/Day [...] on filedocumented in this encounter Care Teams Instructional Developer Relationship Specialty Start Date End Date Analy Villatoro MD PCP - General Internal Medicine 05/13/15 documented as of this encounter
--- OUTSIDE RECORDS SUMMARY | 2025-02-24 16:01 | XMS_ITS | Clinical Summary ---
Author Organization [facility] Address [address] [place] [address] Care Team Providers Care Transportation Security Screener Name Role Phone Unavailable Primary Care Provider [...]
--- OUTSIDE RECORDS SUMMARY | 2025-02-24 16:02 | XMS_ITS | Encounter Summary ---
Author Organization [facility] Address [address] [place] [address] Care Team Providers Care Wet Room Supervisor Name Role Phone Analy Villatoro MD Primary Care Provider Ninfa De León, Pcp Primary Care Provider Brittany Phan MD Primary Care Provider Un available Analy Villatoro MD Primary Care Provider Ninfa mitchell Encounter Details Date Type Department Care Team Description 12/07/2012 [facility] Medical Records [address] [place] [id number] Matthew Estrada Social History Tobacco Use Types Packs/Day Years [...] on filedocumented in this encounter Care Teams Wet Room Supervisor Relationship Specialty Start Date End Date Analy Villatoro MD PCP - General 09/13/09 08/28/14 Sarthak, Pcp PCP - General Internal Medicine 08/29/14 10/26/14 Brittany Aguillon MD PCP - General Internal Medicine 10/27/1405/12 Analy Villatoro MD PCP - General Internal Medicine 05/13/15 documented as of this encounter
--- OUTSIDE RECORDS SUMMARY | 2025-02-24 16:02 | XMS_ITS | Encounter Summary ---
Author Organization [facility] Address [address] [place] [address] Care Team Providers Care Muskrat Trapper Name Role Phone Analy Villatoro MD Primary Care Provider Ninfa De León, Pcp Primary Care Provider Brittany Phan MD Primary Care Provider Un available Analy Villatoro MD Primary Care Provider Ninfa mitchell Encounter Details Date Type Department Care Team Description 11/19/2013 [facility] Medical Records [address] [place] [id number] Social History Tobacco Use Types Packs/Day Years [...] on filedocumented in this encounter Care Teams Muskrat Trapper Relationship Specialty Start Date End Date Analy Villatoro MD PCP - General 09/13/09 08/28/14 Sarthak, Pcp PCP - General Internal Medicine 08/29/14 10/26/14 Brittany Aguillon MD PCP - General Internal Medicine 10/27/1405/12 Analy Villatoro MD PCP - General Internal Medicine 05/13/15 documented as of this encounter
--- OUTSIDE RECORDS SUMMARY | 2025-02-24 16:02 | XMS_ITS | Encounter Summary ---
Author Organization [facility] Address [address] [place] [address] Care Team Providers Care Senior Environmental Engineer Name Role Phone Brittany Aguillon MD Primary Care Provider Un available Analy Villatoro MD Primary Care Provider Unava ilable Reason for Visit * Reason Onset Date Comments refill request 03/25/2015 Encounter Details Date Type Department Care Team Description 03/25/2015 Refill Medicine/Pediatrics - [address] [id number] Brittany Aguillon MD refill request Social History Tobacco Use Types Packs/Day Years [...] on filedocumented in this encounter Care Teams Senior Environmental Engineer Relationship Specialty Start Date End Date Brittany Aguillon MD PCP - General Internal Medicine 10/27/1405/12 Analy Villatoro MD PCP - General Internal Medicine 05/13/15 documented as of this encounter
--- OUTSIDE RECORDS SUMMARY | 2025-02-24 16:02 | XMS_ITS | Encounter Summary ---
Author Organization [facility] Address [address] [place] [address] Care Team Providers Care Materials Director Name Role Phone Brittany Aguillon MD Primary Care Provider Un available Analy Villatoro MD Primary Care Provider Unava ilable Encounter Details Date Type Department Care Team Description 02/20/2015 [facility] Medical Records [address] [place] [id number] Elliott Villanueva Social History Tobacco Use Types Packs/Day Years [...] on filedocumented in this encounter Care Teams Materials Director Relationship Specialty Start Date End Date Brittany Aguillon MD PCP - General Internal Medicine 10/27/1405/12 Analy Villatoro MD PCP - General Internal Medicine 05/13/15 documented as of this encounter
== END 2025-02-24 17:05 ==
LOC: HO.HMCFM 14:42
PROVIDERS: PCP Family Medicine; Visit Provider Family Medicine
DX: E78.00 Pure hypercholesterolemia, unspecified (principal); T78.40XA Allergy, unspecified, initial encounter